=== PATIENT | female | born 1970 | race Caucasian/White ===

== ENCOUNTER 2016-02-11 22:05 | Emergency (ER) | payer BC ==
--- NOTE | 2016-02-11 23:51 | ED ORDER SUMMARY ---
..... Patient: STEPHANIE CALVIN OrderSheet [facility] VisitID: [id number] [address] [place] [address] 46y, F Registration Date/Time: 02/11/2016 ORDER SHEET Weight: 120.2 kg (stated) Allergies: None GENERAL ORDERS: MEDICATION ORDERS: Dilaudid IM 1 mg (HIGH ALERT MEDICATION, NOW) (23:48 02/11/2016 Robson KELLY) (Ack 23:48 RCollier R.N.) (23:54 RCollier R.N.) Phenergan IM 25 mg (HIGH ALERT MEDICATION, NOW) (23:48 02/11/2016 Robson KELLY) (Ack 23:48 RCollier R.N.) (23:54 RCollier R.N.) IV FLUIDS: ORDER SHEET NOTES: [Electronically signed by Adalgisa Perez R.N. (00:15 02/12/2016)] [Electronically signed by Shady Bland DO (03:15 02/12/2016)] [Electronically locked/signed by Adalgisa Perze R.N. (00:15 02/12/2016)]
--- NOTE | 2016-02-11 23:51 | ED NURSING NOTES ---
Clinical Report - Nurses [facility] [address] [place] [address] 02/11/2016 22:09 [id number] Triage time 22:49 Feb 11 2016. Acuity: LEVEL 3. Chief Complaint: BACK PAIN. Alert. No acute distress. LIZ COMA SCORE: Liz Coma Scale: 15- eyes open spontaneously (4); best verbal response- oriented x 4 (5); best motor response- obeys commands (6). --22:53 Narcisa Cobb R.N. 22:49 02/11/16. BP: 175/106. HR: 88. RR: 18. O2 saturation: 96%. Temp: 98.5 F. Pain level now 11/18. --22:53 Narcisa Cobb R.N. Weight: 120.2 kg stated. Height/Length: 64 inches Per Patient. BMI: 45.5. --22:47 Narcisa Cobb R.N. Medications Adderall Oral 10 mg, daily as needed. --22:50 Narcisa Cobb R.N. FLUoxetine HCl Oral 10 mg, daily. --22:50 Narcisa Cobb R.N. Medication/allergy information source: the patient. --22:53 Narcisa Cobb R.N. Allergies None. --22:51 Narcisa Cobb R.N. History Arrived by private vehicle. Historian: patient. Primary physician (Dr. Marroquin). ( Back Pain yesterday, 11/18. Can't get into a comfortable position regardless of position.). This started today. No history of recent trauma. 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 PAST MEDICAL HX: Tetanus status: up-to-date. Has not received seasonal influenza immunization. SOCIAL HX: Never smoker. No alcohol use or drug use. NUTRITIONAL RISK ASSESSMENT: The nutritional risk assessment revealed no deficiencies. FUNCTIONAL ASSESSMENT: Functional assessment: no impairments noted. LEARNING NEEDS ASSESSMENT: The learning needs assessment revealed no barriers. SKIN INTEGRITY ASSESSMENT: Skin integrity risk assessment completed. No skin integrity risk identified. --22:53 Narcisa Cobb R.N. PROBLEMS: Back Pain. --22:51 Narcisa Cobb R.N. ADDITIONAL SURGERIES: Tonsillectomy. --22:52 Narcisa Cobb R.N. Interventions ID band on patient. To room. --22:53 Narcisa Cobb R.N. PHYSICAL ASSESSMENT Patient gowned. GENERAL / NEURO / PSYCH: Alert. Oriented X 4. Appears in pain. RESPIRATORY: Respirations not labored. CVS: Capillary refill less than 2 seconds. --23:23 Adalgisa Perez R.N. NURSING PROGRESS NOTES Head of bed elevated. Two patient identifiers checked. Call light placed in reach. Side rails up x 1. Bed placed in lowest position. Brakes of bed on. --23:24 Adalgisa Perez R.N. Patient ready for evaluation- chart flagged. --23:24 Adalgisa Perez R.N. 23:54 02/11/2016 Dilaudid (HYDROmorphone HCl PF) IM 1 mg given. Given in the right ventral gluteus. Allergies verified, confirmed 5 rights and sedative warning given to the patient. (mixed in syringe with Phenergan). --23:54 Adalgisa Perez R.N. 23:54 02/11/2016 Phenergan (Promethazine HCl) IM 12.5 mg given. Given in the right ventral gluteus. Allergies verified, confirmed 5 rights and sedative warning given to the patient. (mixed in syringe with Dilaudid). --23:54 Adalgisa Perez R.N. DISPOSITION / DISCHARGE Condition at departure: stable. No learning barriers present. Discharge instructions provided and reviewed with the patient. Reviewed medication(s) side effects, precautions, dosing and course information. Prescription(s) given to the patient. Patient verbalized understanding. Written instructions provided in Kenyan. The patient was discharged home and accompanied by spouse. She left the Emergency Department ambulatory and via private vehicle. Spouse driving. --00:14 Adalgisa Perez R.N. 00:12 02/12/16. BP: deferred. HR: deferred. RR: 15. O2 saturation: deferred. Temp: deferred. Sifunetes-Jane pain scale: 05/19. --00:14 Adalgisa Perez R.N. Locked/Released at 02/12/2016 0:15 by Adalgisa Perez R.N.
--- NOTE | 2016-02-11 23:51 | ED NURSING NOTES ---
Clinical Report - Nurses [facility] [address] [place] [address] 02/11/2016 22:09 [id number] Triage time 22:49 Feb 11 2016. Acuity: LEVEL 3. Chief Complaint: BACK PAIN. Alert. No acute distress. LIZ COMA SCORE: Liz Coma Scale: 15- eyes open spontaneously (4); best verbal response- oriented x 4 (5); best motor response- obeys commands (6). --22:53 Narcisa Cobb R.N. 22:49 02/11/16. BP: 175/106. HR: 88. RR: 18. O2 saturation: 96%. Temp: 98.5 F. Pain level now 11/18. --22:53 Narcisa Cobb R.N. Weight: 120.2 kg stated. Height/Length: 64 inches Per Patient. BMI: 45.5. --22:47 Narcisa Cobb R.N. Medications Adderall Oral 10 mg, daily as needed. --22:50 Narcisa Cobb R.N. FLUoxetine HCl Oral 10 mg, daily. --22:50 Narcisa Cobb R.N. Medication/allergy information source: the patient. --22:53 Narcisa Cobb R.N. Allergies None. --22:51 Narcisa Cobb R.N. History Arrived by private vehicle. Historian: patient. Primary physician (Dr. Marroquin). ( Back Pain yesterday, 11/18. Can't get into a comfortable position regardless of position.). This started today. No history of recent trauma. 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 PAST MEDICAL HX: Tetanus status: up-to-date. Has not received seasonal influenza immunization. SOCIAL HX: Never smoker. No alcohol use or drug use. NUTRITIONAL RISK ASSESSMENT: The nutritional risk assessment revealed no deficiencies. FUNCTIONAL ASSESSMENT: Functional assessment: no impairments noted. LEARNING NEEDS ASSESSMENT: The learning needs assessment revealed no barriers. SKIN INTEGRITY ASSESSMENT: Skin integrity risk assessment completed. No skin integrity risk identified. --22:53 Narcisa Cobb R.N. PROBLEMS: Back Pain. --22:51 Narcisa Cobb R.N. ADDITIONAL SURGERIES: Tonsillectomy. --22:52 Narcisa Cobb R.N. Interventions ID band on patient. To room. --22:53 Narcisa Cobb R.N. PHYSICAL ASSESSMENT Patient gowned. GENERAL / NEURO / PSYCH: Alert. Oriented X 4. Appears in pain. RESPIRATORY: Respirations not labored. CVS: Capillary refill less than 2 seconds. --23:23 Adalgisa Perez R.N. NURSING PROGRESS NOTES Head of bed elevated. Two patient identifiers checked. Call light placed in reach. Side rails up x 1. Bed placed in lowest position. Brakes of bed on. --23:24 Adalgisa Perez R.N. Patient ready for evaluation- chart flagged. --23:24 Adalgisa Perez R.N. 23:54 02/11/2016 Dilaudid (HYDROmorphone HCl PF) IM 1 mg given. Given in the right ventral gluteus. Allergies verified, confirmed 5 rights and sedative warning given to the patient. (mixed in syringe with Phenergan). --23:54 Adalgisa Perez R.N. 23:54 02/11/2016 Phenergan (Promethazine HCl) IM 12.5 mg given. Given in the right ventral gluteus. Allergies verified, confirmed 5 rights and sedative warning given to the patient. (mixed in syringe with Dilaudid). --23:54 Adalgisa Perez R.N. DISPOSITION / DISCHARGE Condition at departure: stable. No learning barriers present. Discharge instructions provided and reviewed with the patient. Reviewed medication(s) side effects, precautions, dosing and course information. Prescription(s) given to the patient. Patient verbalized understanding. Written instructions provided in Ethiopian. The patient was discharged home and accompanied by spouse. She left the Emergency Department ambulatory and via private vehicle. Spouse driving. --00:14 Adalgisa Perez R.N. 00:12 02/12/16. BP: deferred. HR: deferred. RR: 15. O2 saturation: deferred. Temp: deferred. Sifuentes-Jane pain scale: 05/19. --00:14 Adalgisa Perez R.N. Locked/Released at 02/12/2016 0:15 by Adalgisa Perez R.N.
--- NOTE | 2016-02-11 23:51 | ED ORDER SUMMARY ---
..... Patient: STEPHANIE CALVIN OrderSheet [facility] VisitID: [id number] [address] [place] [address] 46y, F Registration Date/Time: 02/11/2016 ORDER SHEET Weight: 120.2 kg (stated) Allergies: None GENERAL ORDERS: MEDICATION ORDERS: Dilaudid IM 1 mg (HIGH ALERT MEDICATION, NOW) (23:48 02/11/2016 Robson KELLY) (Ack 23:48 RCollier R.N.) (23:54 RCollier R.N.) Phenergan IM 25 mg (HIGH ALERT MEDICATION, NOW) (23:48 02/11/2016 Robson KELLY) (Ack 23:48 RCollier R.N.) (23:54 RCollier R.N.) IV FLUIDS: ORDER SHEET NOTES: [Electronically signed by Adalgisa Perez R.N. (00:15 02/12/2016)] [Electronically signed by Shady Bland DO (03:15 02/12/2016)] [Electronically locked/signed by Adalgisa Perez R.N. (00:15 02/12/2016)]
--- NOTE | 2016-02-11 23:51 | ED CLINICAL REPORT ---
Clinical Report - Physicians/Mid Levels [facility] [address] [place] [address] 02/11/2016 22:09 Patient: STEPHANIE CALVIN Time Seen: 23:36. Arrived- By private vehicle. Historian- patient. HISTORY OF PRESENT ILLNESS Chief Complaint: BACK PAIN. Onset was yesterday and it is still present. It was gradual in onset and has been waxing/waning. Modifying factors- worsened by sitting or walking. It is described as being severe and in the area of the right side of the lower lumbar spine. The quality is noted to be "pain" and similar to prior episodes. No radiation. No bladder dysfunction, bowel dysfunction, sensory loss or motor loss. Patient notes the possibility of an injury but denies injury to the head or chest. Mechanism of injury- she was lifting, turning and bending. No other injury. Similar symptoms previously: Recent medical care: Not recently seen/assessed. REVIEW OF SYSTEMS No fever, chills, headache, sore throat or cough. No difficulty breathing, chest pain, skin rash, abdominal pain or nausea. No vomiting, diarrhea, black stools, difficulty with urination or urinary frequency. No hematuria or bloody stools. All systems otherwise negative, except as recorded above. PAST HISTORY The patient has had prior back pain. PCP: BO Marroquin. No history of hypertension or diabetes mellitus. Depression. Attention deficit and hyperactivity disorder. Surgeries: Tonsillectomy. Medications: FLUoxetine HCl Oral 10 mg, daily. Adderall Oral 10 mg, daily as needed. Allergies: None. SOCIAL HISTORY Never smoker. No alcohol use or drug use. Is a local resident. ADDITIONAL NOTES The nursing notes have been reviewed. PHYSICAL EXAM Vital Signs: 02/11/2016 22:49 BP: 175/106. HR: 88. RR: 18. O2 saturation: 96%. Temp: 98.5 F. Appearance: Alert. Patient in moderate distress. HEENT: Normal external inspection. Eyes: Pupils equal, round and reactive to light. ENT: Pharynx normal. Neck: Normal inspection. Neck nontender. Painless ROM. CVS: Normal heart rate and rhythm. Heart sounds normal. Pulses normal. Respiratory: No respiratory distress. Breath sounds normal. Chest nontender. No rales, rhonchi or wheezes. Abdomen: Normal inspection. Soft and nontender. No mass. Obese. Back: Normal inspection. Moderate soft tissue tenderness in the right lower lumbar area. No vertebral point tenderness. Skin: No cyanosis. Skin warm and dry. Normal skin color. No rash. Normal skin turgor. No pallor or diaphoresis. Extremities: Extremities exhibit normal ROM. Extremities nontender. Neuro: Oriented X 3. Mood/affect normal. No motor deficit. No sensory deficit. Straight leg raising: negative on the right and negative on the left. Reflexes normal. Reflex exam: right patellar 2+, left patellar 2+, right Achilles 1+ and left Achilles 1+. LABS, X-RAYS, AND EKG Pulse Oximetry: 02/11/2016 22:49 O2 saturation: 96%. (FIO2 - room air). Interpretation: normal. PROGRESS AND PROCEDURES Course of Care: Dilaudid 1 mg with Phenergan 25 mg IM given. No signs of cord compression. No radicular symptoms. No irritative voiding symptoms. No flank pain or abdominal pain. No reason to suspect spinal / epidural infectious process / discitis. Clearly reproducible lower lumbar muscular tenderness. Pt does admit to increased lifting and bending in past several days Patient is stable. Physical exam findings are improved. Symptoms much better. Patient/family counseled. Disposition: Discharged. Condition: stable and improved. CLINICAL IMPRESSION Acute traumatic lumbar back pain associated with muscle strain. Essential hypertension. Morbid obesity (BMI >=40) due to excess calories. INSTRUCTIONS Apply ice. Limit lifting. Rest. Do not work for three days. Warnings: CONTROLLED SUBSTANCE WARNINGS. GENERAL WARNINGS: Return or contact your physician immediately if your condition worsens or changes unexpectedly, if not improving as expected, or if other problems arise. Your Current Medications: CONTINUE TAKING THE FOLLOWING MEDICATIONS: Adderall Oral : 10 mg daily, prn. FLUoxetine HCl Oral : 10 mg daily. Prescription Medications: Hydrocodone/APAP 5mg/325mg: take 1 to 2 orally every 6 hours as needed for pain. Dispense fifteen (15). No refills. Flexeril 10 mg: Take 1 orally every 8 hours as needed for muscle spasm. Dispense twenty (20). No refills. Substitution is permissible. OTC Medications: Acetaminophen (available over the counter): take according to label instructions. Motrin (available over the counter): take according to label instructions. Follow-up: Screening today revealed the patient's blood pressure to be in the hypertensive range. The patient should follow up with a primary care provider for blood pressure management. (Electronically signed by Shady Bland DO 02/12/2016 3:15)
--- NOTE | 2016-02-12 03:15 | ED DISCHARGE INSTRUCTIONS ---
Patient: STEPHANIE CALVIN General Instructions [facility] VisitID: [id number] [place] [address] 46y, F Registration Date/Time: 02/11/2016 Acute traumatic lumbar back pain associated with muscle strain. Essential hypertension. Morbid obesity (BMI >=40) due to excess calories. INSTRUCTIONS Apply ice. Limit lifting. Rest. Do not work for three days. Warnings: CONTROLLED SUBSTANCE WARNINGS. GENERAL WARNINGS: Return or contact your physician immediately if your condition worsens or changes unexpectedly, if not improving as expected, or if other problems arise. Your Current Medications: CONTINUE TAKING THE FOLLOWING MEDICATIONS: Adderall Oral : 10 mg daily, prn. FLUoxetine HCl Oral : 10 mg daily. Prescription Medications: Hydrocodone/APAP 5mg/325mg: take 1 to 2 orally every 6 hours as needed for pain. Dispense fifteen (15). No refills. Flexeril 10 mg: Take 1 orally every 8 hours as needed for muscle spasm. Dispense twenty (20). No refills. Substitution is permissible. OTC Medications: Acetaminophen (available over the counter): take according to label instructions. Motrin (available over the counter): take according to label instructions. Follow-up: Screening today revealed the patient's blood pressure to be in the hypertensive range. The patient should follow up with a primary care provider for blood pressure management. ADDITIONAL INFORMATION Back Pain [Acute Or Chronic] Back pain is usually caused by an injury to the muscles or ligaments of the spine. Sometimes the disks that separate each bone in the spine may bulge and cause pain by pressing on a nearby nerve. Back pain may also appear after a sudden twisting/bending force (such as in a car accident), after a simple awkward movement, or lifting something heavy with poor body positioning. In either case, muscle spasm is often present and adds to the pain. Acute back pain usually gets better in one to two weeks. Back pain related to disk disease, arthritis in the spinal joints or spinal stenosis (narrowing of the spinal canal) can become chronic and last for months or years. Unless you had a physical injury (for example, a car accident or fall) X-rays are usually not ordered for the initial evaluation of back pain. If pain continues and does not respond to medical treatment, x-rays and other tests may be performed at a later time. Home Care: You may need to stay in bed the first few days. But, as soon as possible, begin sitting or walking to avoid problems with prolonged bed rest (muscle weakness, worsening back stiffness and pain, blood clots in the legs). When in bed, try to find a position of comfort. A firm mattress is best. Try lying flat on your back with pillows under your knees. You can also try lying on your side with your knees bent up towards your chest and a pillow between your knees. Avoid prolonged sitting. This puts more stress on the lower back than standing or walking. During the first two days after injury, apply an ICE PACK to the painful area for 20 minutes every 2-4 hours. This will reduce swelling and pain. HEAT (hot shower, hot bath or heating pad) works well for muscle spasm. You can start with ice, then switch to heat after two days. Some patients feel best alternating ice and heat treatments. Use the one method that feels the best to you. You may use acetaminophen (Tylenol) or ibuprofen (Motrin, Advil) to control pain, unless another pain medicine was prescribed. [NOTE: If you have chronic liver or kidney disease or ever had a stomach ulcer or GI bleeding, talk with your doctor before using these medicines.] Be aware of safe lifting methods and do not lift anything over 15 pounds until all the pain is gone. Follow Up with your doctor or this facility if your symptoms do not start to improve after one week. Physical therapy may be needed. [NOTE: If X-rays were taken, they will be reviewed by a radiologist. You will be notified of any new findings that may affect your care.] Get Prompt Medical Attention if any of the following occur: Pain becomes worse or spreads to your legs Weakness or numbness in one or both legs Loss of bowel or bladder control Numbness in the groin or genital area High Blood Pressure -- To Be Confirmed [No Tx] Your blood pressure was higher today than normal. Sometimes anxiety or pain can cause a temporary rise in blood pressure that later returns to normal. If your blood pressure is high on one measurement, this does not mean that you have hypertension (a chronic illness). However, you must have your blood pressure measured again within the next few days to find out if its still high. A normal blood pressure is 120/80 or less. The first (top) number is the "systolic" pressure. The second (bottom) number is the "diastolic" pressure. Hypertension exists when either the top number is 140 or higher, OR the bottom number is 90 or higher on repeated measurements. Blood pressure in the range of 120-140 (systolic) or 80-89 (diastolic) is considered "pre-hypertension". This means your are at risk for getting hypertension. You should have regular blood pressure checks to be sure your blood pressure is not rising. Home Care: Measure your blood pressure on 3 different days and write down the results. This can be done at your doctor's office or this facility. Some pharmacies and grocery stores offer automated blood pressure machines for your use. Follow Up: If your blood pressure is "high" (over 120/80) on 2 out of 3 days, you will need to follow up with your doctor for further evaluation and treatment. DO NOT PUT THIS OFF! Untreated high blood pressure increases the risk for heart attack, also known as acute myocardial infarction, or AMI, and stroke. It is a treatable condition. Get Prompt Medical Attention if any of the following occur: Chest pain or shortness of breath Severe headache Throbbing or rushing sound in the ears Nosebleed Sudden severe abdominal pain Extreme drowsiness, confusion or fainting Dizziness or vertigo (dizziness with spinning sensation) Weakness of an arm or leg or one side of the face Difficulty with speech or vision Hydrocodone Bitartrate, Acetaminophen Oral tablet What is this medicine? ACETAMINOPHEN; HYDROCODONE (a set a JARRELL laura fen; nuzhat droe KOE done) is a pain reliever. It is used to treat mild to moderate pain. How should I use this medicine? Take this medicine by mouth. Swallow it with a full glass of water. Follow the directions on the prescription label. If the medicine upsets your stomach, take the medicine with food or milk. Do not take more than you are told to take. Talk to your paint line production supervisor regarding the use of this medicine in children. This medicine is not approved for use in children. What side effects may I notice from receiving this medicine? Side effects that you should report to your doctor or health health care sanitary technician as soon as possible: allergic reactions like skin rash, itching or hives, swelling of the face, lips, or tongue breathing problems confusion feeling faint or lightheaded, falls stomach pain yellowing of the eyes or skin Side effects that usually do not require medical attention (report to your doctor or health health care sanitary technician if they continue or are bothersome): nausea, vomiting stomach upset What may interact with this medicine? alcohol antihistamines isoniazid medicines for depression, anxiety, or psychotic disturbances medicines for sleep muscle relaxants naltrexone narcotic medicines (opiates) for pain phenobarbital ritonavir tramadol What if I miss a dose? If you miss a dose, take it as soon as you can. If it is almost time for your next dose, take only that dose. Do not take double or extra doses. Where should I keep my medicine? Keep out of the reach of children. This medicine can be abused. Keep your medicine in a safe place to protect it from theft. Do not share this medicine with anyone. Selling or giving away this medicine is dangerous and against the law. Store at room temperature between 15 and 30 degrees C (59 and 86 degrees F). Protect from light. Keep container tightly closed. Throw away any unused medicine after the expiration date. Discard unused medicine and used packaging carefully. Pets and children can be harmed if they find used or lost packages. What should I tell my health care provider before I take this medicine? They need to know if you have any of these conditions: brain tumor Crohn's disease, inflammatory bowel disease, or ulcerative colitis drink more than 3 alcohol-containing drinks per day drug abuse or addiction head injury heart or circulation problems kidney disease or problems going to the bathroom liver disease lung disease, asthma, or breathing problems an unusual or allergic reaction to acetaminophen, hydrocodone, other opioid analgesics, other medicines, foods, dyes, or preservatives or trying to get breast-feeding What should I watch for while using this medicine? Tell your doctor or health health care sanitary technician if your pain does not go away, if it gets worse, or if you have new or a different type of pain. You may develop tolerance to the medicine. Tolerance means that you will need a higher dose of the medicine for pain relief. Tolerance is normal and is expected if you take the medicine for a long time. Do not suddenly stop taking your medicine because you may develop a severe reaction. Your body becomes used to the medicine. This does NOT mean you are addicted. Addiction is a behavior related to getting and using a drug for a non-medical reason. If you have pain, you have a medical reason to take pain medicine. Your doctor will tell you how much medicine to take. If your doctor wants you to stop the medicine, the dose will be slowly lowered over time to avoid any side effects. You may get drowsy or dizzy when you first start taking the medicine or change doses. Do not drive, use machinery, or do anything that may be dangerous until you know how the medicine affects you. Stand or sit up slowly. There are different types of narcotic medicines (opiates) for pain. If you take more than one type at the same time, you may have more side effects. Give your health care provider a list of all medicines you use. Your doctor will tell you how much medicine to take. Do not take more medicine than directed. Call emergency for help if you have problems breathing. The medicine will cause constipation. Try to have a bowel movement at least every 2 to 3 days. If you do not have a bowel movement for 3 days, call your doctor or health health care sanitary technician. Too much acetaminophen can be very dangerous. Do not take Tylenol (acetaminophen) or medicines that contain acetaminophen with this medicine. Many non-prescription medicines contain acetaminophen. Always read the labels carefully. Cyclobenzaprine Hydrochloride Oral tablet What is this medicine? CYCLOBENZAPRINE (phuc warren) is a muscle relaxer. It is used to treat muscle pain, spasms, and stiffness. How should I use this medicine? Take this medicine by mouth with a glass of water. Follow the directions on the prescription label. If this medicine upsets your stomach, take it with food or milk. Take your medicine at regular intervals. Do not take it more often than directed. Talk to your paint line production supervisor regarding the use of this medicine in children. Special care may be needed. What side effects may I notice from receiving this medicine? Side effects that you should report to your doctor or health health care sanitary technician as soon as possible: allergic reactions like skin rash, itching or hives, swelling of the face, lips, or tongue chest pain fast heartbeat hallucinations seizures vomiting Side effects that usually do not require medical attention (report to your doctor or health health care sanitary technician if they continue or are bothersome): headache What may interact with this medicine? Do not take this medicine with any of the following medications: cisapride droperidol flecainide grepafloxacin halofantrine levomethadyl MAOIs like Carbex, Eldepryl, Marplan, Nardil, and Parnate nilotinib pimozide probucol sertindole This medicine may also interact with the following medications: abarelix alcohol contrast dyes dolasetron guanethidine medicines for cancer medicines for depression, anxiety, or psychotic disturbances medicines to treat an irregular heartbeat medicines used for sleep or numbness during surgery or procedure methadone octreotide ondansetron palonosetron phenothiazines like chlorpromazine, mesoridazine, prochlorperazine, thioridazine some medicines for infection like alfuzosin, chloroquine, clarithromycin, levofloxacin, mefloquine, pentamidine, troleandomycin tramadol vardenafil What if I miss a dose? If you miss a dose, take it as soon as you can. If it is almost time for your next dose, take only that dose. Do not take double or extra doses. Where should I keep my medicine? Keep out of the reach of children. Store at room temperature between 15 and 30 degrees C (59 and 86 degrees F). Keep container tightly closed. Throw away any unused medicine after the expiration date. What should I tell my health care provider before I take this medicine? They need to know if you have any of these conditions: heart disease, irregular heartbeat, or previous heart attack liver disease thyroid problem an unusual or allergic reaction to cyclobenzaprine, tricyclic antidepressants, lactose, other medicines, foods, dyes, or preservatives or trying to get breast-feeding What should I watch for while using this medicine? Check with your doctor or health health care sanitary technician if your condition does not improve within 1 to 3 weeks. You may get drowsy or dizzy when you first start taking the medicine or change doses. Do not drive, use machinery, or do anything that may be dangerous until you know how the medicine affects you. Stand or sit up slowly. Your mouth may get dry. Drinking water, chewing sugarless gum, or sucking on hard candy may help. Acetaminophen Oral tablet What is this medicine? ACETAMINOPHEN (a set a JARRELL laura fen) is a pain reliever. It is used to treat mild pain and fever. How should I use this medicine? Take this medicine by mouth with a glass of water. Follow the directions on the package or prescription label. Take your medicine at regular intervals. Do not take your medicine more often than directed. Talk to your paint line production supervisor regarding the use of this medicine in children. While this drug may be prescribed for children as young as 6 years of age for selected conditions, precautions do apply. What side effects may I notice from receiving this medicine? Side effects that you should report to your doctor or health health care sanitary technician as soon as possible: allergic reactions like skin rash, itching or hives, swelling of the face, lips, or tongue breathing problems fever or sore throat redness, blistering, peeling or loosening of the skin, including inside the mouth trouble passing urine or change in the amount of urine unusual bleeding or bruising unusually weak or tired yellowing of the eyes or skin Side effects that usually do not require medical attention (report to your doctor or health health care sanitary technician if they continue or are bothersome): headache nausea, stomach upset What may interact with this medicine? alcohol imatinib isoniazid other medicines with acetaminophen What if I miss a dose? If you miss a dose, take it as soon as you can. If it is almost time for your next dose, take only that dose. Do not take double or extra doses. Where should I keep my medicine? Keep out of reach of children. Store at room temperature between 20 and 25 degrees C (68 and 77 degrees F). Protect from moisture and heat. Throw away any unused medicine after the expiration date. What should I tell my health care provider before I take this medicine? They need to know if you have any of these conditions: if you frequently drink alcohol containing drinks liver disease an unusual or allergic reaction to acetaminophen, other medicines, foods, dyes or preservatives or trying to get breast-feeding What should I watch for while using this medicine? Tell your doctor or health health care sanitary technician if the pain lasts more than 10 days (5 days for children), if it gets worse, or if there is a new or different kind of pain. Also, check with your doctor if a fever lasts for more than 3 days. Do not take other medicines that contain acetaminophen with this medicine. Always read labels carefully. If you have questions, ask your doctor or pharmacist. If you take too much acetaminophen get medical help right away. Too much acetaminophen can be very dangerous and cause liver damage. Even if you do not have symptoms, it is important to get help right away. Ibuprofen Oral tablet What is this medicine? IBUPROFEN (eye BYOO proe fen) is a non-steroidal anti-inflammatory drug (NSAID). It is used for dental pain, fever, headaches or migraines, osteoarthritis, rheumatoid arthritis, or painful monthly periods. It can also relieve minor aches and pains caused by a cold, flu, or sore throat. How should I use this medicine? Take this medicine by mouth with a glass of water. Follow the directions on the prescription label. Take this medicine with food if your stomach gets upset. Try to not lie down for at least 10 minutes after you take the medicine. Take your medicine at regular intervals. Do not take your medicine more often than directed. A special MedGuide will be given to you by the pharmacist with each prescription and refill. Be sure to read this information carefully each time. Talk to your paint line production supervisor regarding the use of this medicine in children. Special care may be needed. What side effects may I notice from receiving this medicine? Side effects that you should report to your doctor or health health care sanitary technician as soon as possible: allergic reactions like skin rash, itching or hives, swelling of the face, lips, or tongue black or bloody stools, blood in the urine or in vomit breathing problems changes in vision chest pain general ill feeling or flu-like symptoms nausea or vomiting redness, blistering, peeling or loosening of the skin, including inside the mouth slurred speech or weakness on one side of the body stomach pain unexplained weight gain or swelling unusually weak or tired yellowing of eyes or skin Side effects that usually do not require medical attention (report to your doctor or health health care sanitary technician if they continue or are bothersome): constipation or diarrhea dizziness gas or heartburn stomach upset What may interact with this medicine? Do not take this medicine with any of the following medications: cidofovir ketorolac methotrexate pemetrexed This medicine may also interact with the following medications: alcohol aspirin diuretics lithium other drugs for inflammation like prednisone warfarin What if I miss a dose? If you miss a dose, take it as soon as you can. If it is almost time for your next dose, take only that dose. Do not take double or extra doses. Where should I keep my medicine? Keep out of the reach of children. Store at room temperature between 15 and 30 degrees C (59 and 86 degrees F). Keep container tightly closed. Throw away any unused medicine after the expiration date. What should I tell my health care provider before I take this medicine? They need to know if you have any of these conditions: asthma cigarette smoker drink more than 3 alcohol containing drinks a day heart disease or circulation problems such as heart failure or leg edema (fluid retention) high blood pressure kidney disease liver disease stomach bleeding or ulcers an unusual or allergic reaction to ibuprofen, aspirin, other NSAIDS, other medicines, foods, dyes, or preservatives or trying to get breast-feeding What should I watch for while using this medicine? Tell your doctor or healthcare professional if your symptoms do not start to get better or if they get worse. This medicine does not prevent heart attack or stroke. In fact, this medicine may increase the chance of a heart attack or stroke. The chance may increase with longer use of this medicine and in people who have heart disease. If you take aspirin to prevent heart attack or stroke, talk with your doctor or health health care sanitary technician. Do not take other medicines that contain aspirin, ibuprofen, or naproxen with this medicine. Side effects such as stomach upset, nausea, or ulcers may be more likely to occur. Many medicines available without a prescription should not be taken with this medicine. This medicine can cause ulcers and bleeding in the stomach and intestines at any time during treatment. Ulcers and bleeding can happen without warning symptoms and can cause . To reduce your risk, do not smoke cigarettes or drink alcohol while you are taking this medicine. You may get drowsy or dizzy. Do not drive, use machinery, or do anything that needs mental alertness until you know how this medicine affects you. Do not stand or sit up quickly, especially if you are an older patient. This reduces the risk of dizzy or fainting spells. This medicine can cause you to bleed more easily. Try to avoid damage to your teeth and gums when you brush or floss your teeth. You have been given the following additional information: Back Pain (Acute Or Chronic) Hypertension, To Be Confirmed Hydrocodone Bitartrate, Acetaminophen Oral tablet Cyclobenzaprine Hydrochloride Oral tablet Acetaminophen Oral tablet Ibuprofen Oral tablet Limit lifting. Rest. Do not work for three days. (Electronically signed by Shady Bland DO 02/12/2016 3:15)
--- NOTE | 2016-02-12 03:15 | ED MAR SUMMARY ---
..... Medication Administration Record [facility] [address] [place] [address] Patient: STEPHANIE CALVIN Visit ID: [id number] 46y, F Weight: 120.2 kg Height/Length: 64 in BMI: 45.5 ALLERGIES: None Given 23:02/11/2016 Adalgisa Perez, RAmarjitN. Medication Administered: DILAUDID [IM] (HYDROMORPHONE HCL PF), Dose: 1 mg IM. Medication Ordered: Dilaudid IM 1 mg (HIGH ALERT MEDICATION, NOW). Given 23:02/11/2016 Adalgisa Perez, R.N. Medication Administered: PHENERGAN [IM] (PROMETHAZINE HCL), Dose: 12.5 mg IM. Medication Ordered: Phenergan IM 25 mg (HIGH ALERT MEDICATION, NOW).
--- NOTE | 2016-02-12 03:15 | ED MAR SUMMARY ---
..... Medication Administration Record [facility] [address] [place] [address] Patient: STEPHANIE CALVIN Visit ID: [id number] 46y, F Weight: 120.2 kg Height/Length: 64 in BMI: 45.5 ALLERGIES: None Given 23:02/11/2016 Adalgisa Perez, RAmarjitN. Medication Administered: DILAUDID [IM] (HYDROMORPHONE HCL PF), Dose: 1 mg IM. Medication Ordered: Dilaudid IM 1 mg (HIGH ALERT MEDICATION, NOW). Given 23:02/11/2016 Adalgisa Perez, R.N. Medication Administered: PHENERGAN [IM] (PROMETHAZINE HCL), Dose: 12.5 mg IM. Medication Ordered: Phenergan IM 25 mg (HIGH ALERT MEDICATION, NOW).
--- NOTE | 2016-02-12 03:15 | ED MED RECONCILIATION SUMMARY ---
Patient: STEPHANIE CALVIN Medication Reconciliation Report [facility] VisitID: [id number] [place] [place] [address] 46y, F Registration Date/Time: 02/11/2016 Weight: 120.2 kg Height/Length: 64 in. BMI: 45.5 ALLERGIES: None The patient's Home Medications are listed below: CONTINUE TAKING THE FOLLOWING MEDICATIONS: Adderall Oral 10 mg, daily FLUoxetine HCl Oral 10 mg, daily The source(s) of the original Home Medication information: patient The following Medications were given to the patient in the Emergency Department: Dilaudid [IM] IM 1 mg, administered: 02/11/2016 11:54:00 PM Phenergan [IM] IM 12.5 mg, administered: 02/11/2016 11:54:00 PM The following Medications were prescribed to the patient: Acetaminophen (available over the counter): take according to label instructions. -- Shady Bland DO Motrin (available over the counter): take according to label instructions. -- Shady Bland DO Hydrocodone/APAP 5mg/325mg: take 1 to 2 orally every 6 hours as needed for pain. Dispense fifteen (15). No refills. -- Shady Bland DO Flexeril 10 mg: Take 1 orally every 8 hours as needed for muscle spasm. Dispense twenty (20). No refills. Substitution is permissible. -- Shady Bland DO
--- NOTE | 2016-02-12 03:15 | ED MED RECONCILIATION SUMMARY ---
Patient: STEPHANIE CALVIN Medication Reconciliation Report [facility] VisitID: [id number] [place] [address] 46y, F Registration Date/Time: 02/11/2016 Weight: 120.2 kg Height/Length: 64 in. BMI: 45.5 ALLERGIES: None The patient's Home Medications are listed below: CONTINUE TAKING THE FOLLOWING MEDICATIONS: Adderall Oral 10 mg, daily FLUoxetine HCl Oral 10 mg, daily The source(s) of the original Home Medication information: patient The following Medications were given to the patient in the Emergency Department: Dilaudid [IM] IM 1 mg, administered: 02/11/2016 11:54:00 PM Phenergan [IM] IM 12.5 mg, administered: 02/11/2016 11:54:00 PM The following Medications were prescribed to the patient: Acetaminophen (available over the counter): take according to label instructions. -- Shady Bland DO Motrin (available over the counter): take according to label instructions. -- Shady Bland DO Hydrocodone/APAP 5mg/325mg: take 1 to 2 orally every 6 hours as needed for pain. Dispense fifteen (15). No refills. -- Shady Bland DO Flexeril 10 mg: Take 1 orally every 8 hours as needed for muscle spasm. Dispense twenty (20). No refills. Substitution is permissible. -- Shady Bland DO
== END 2016-02-12 00:10 | disposition home or self-care (01) ==
LOC: ED SRH 22:05
DX: S39.012A Strain of muscle, fascia and tendon of lower back, initial encounter (principal); X50.0XXA Overexertion from strenuous movement or load, initial encounter; Y93.89 Activity, other specified; Y92.9 Unspecified place or not applicable; Y99.8 Other external cause status; I10 Essential (primary) hypertension; E66.01 Morbid (severe) obesity due to excess calories; Z68.41 Body mass index [BMI] 40.0-44.9, adult; Z79.899 Other long term (current) drug therapy